=== PATIENT | female | born 1990 | race Caucasian/White ===

== ENCOUNTER 2023-06-17 12:07 | Emergency (ER) | payer SELFPAY ==
[2023-06-17 12:16] VITALS: RESP 18; BMI 30.2
[2023-06-17] MEDS ORDERED: ACETAMINOPHEN 325 MG TABLET (FP) PO ONE (13:24)
[2023-06-17 13:40] LABS: BASO % 0.4 % (0-2.0); EOS % 0.6 % (0-4.5); HEMATOCRIT 39.5 % (32.4-45.2); HEMOGLOBIN 13.2 GM/dL (10.7-15.3); LYMPH % 18.5 % (8-40); MCH 30.3 pg (25.7-33.7); MCHC 33.5 g/dl (32.0-36.0); MEAN CELL VOLUME 90.4 fl (80-96); MEAN PLT VOLUME 8.3 fl (7.5-11.1); MONO % 3.4 % (3.8-10.2); NEUT % 77.1 % (42.8-82.8); PLATELET COUNT 385 10^3/uL (134-434); RBC 4.37 M/mm3 (3.60-5.2); RDW 12.4 % (11.6-15.6); WHITE BLOOD COUNT 11.7 K/mm3 (4.0-10.0)
[2023-06-17 13:42] LABS: EPI CELLS >36 /uL (0-25.1); HYALINE CASTS 1 /uL (0-3.1); URINE APPEARANCE CLEAR; URINE BACTERIA 100 /uL (0-1359); URINE BILIRUBIN NEGATIVE (NEGATIVE); URINE COLOR YELLOW; URINE GLUCOSE (UA) NEGATIVE (NEGATIVE); URINE KETONE NEGATIVE (NEGATIVE); URINE LEUK ESTERASE 1+ (NEGATIVE); URINE NITRITE NEGATIVE (NEGATIVE); URINE PROTEIN NEGATIVE (NEGATIVE); URINE RBC 5 /uL (0-23.9); URINE UROBILINOGEN 0.2 mg/dL (0.2-1.0); URINE WBC 18 /uL (0-25.8)
[2023-06-17] MEDS ORDERED: ACETAMINOPHEN 325 MG TABLET (FP) ONE (13:52)
[2023-06-17 14:15] LABS: CALCIUM 9.1 mg/dL (8.5-10.1)
[2023-06-17 14:16] LABS: ALBUMIN 3.4 g/dl (3.4-5.0); BLOOD UREA NITROGEN 4.7 mg/dL (7-18)
[2023-06-17 14:19] LABS: CREATININE 0.5 mg/dL (0.55-1.3)
[2023-06-17 14:21] LABS: TOT PROT 7.6 g/dl (6.4-8.2)
[2023-06-17 14:27] LABS: BILIRUBIN,TOTAL 0.4 mg/dL (0.2-1)
[2023-06-17 16:18] VITALS: BP 118/80; PULSE 86; TEMP 98
== END 2023-06-17 16:18 | disposition home or self-care (01) ==
LOC: JER 12:07
DX: R10.2 Pelvic and perineal pain (principal)
CPT/HCPCS: 36415; 76815-TC; 80053; 81003; 85025; 86850; 86900; 86901; 87086; 99284-25

== ENCOUNTER 2025-02-13 04:15 | Inpatient (IN) | payer OTHER ==
[2025-02-13 05:37] VITALS: BMI 36.1
[2025-02-13] MEDS: ELECTROLYTE-148 SOLN 1,000 ML IV SCH (06:00)
[2025-02-13] MEDS ORDERED: AMPICILLIN SODIUM 2 GM VIAL ONE (06:08)
[2025-02-13] MEDS: AMPICILLIN - 2 GM in SODIUM CHLORIDE 100 ML IVPB ONE (06:10)
[2025-02-13 06:45] LABS: ABSOLUTE IMMATURE GRANULOCYTES 0.12 x10^3/uL (0.0-0.031); BASOPHILS # 0.06 x10^3/uL (0.01-0.08); EOSINOPHIL % 1.1 % (0.7-5.8); EOSINOPHILS # 0.15 x10^3/uL (0.04-0.36); MCHC 31.4 g/dl (32.2-35.5); MEAN CELL VOLUME 83.3 fl (79.4-94.8); MEAN PLT VOLUME 11.2 fl (9.4-12.3); MONOCYTE # 0.63 x10^3/uL (0.24-0.86); MONOCYTE % 4.6 % (4.7-12.5); RDW 18.9 % (12.1-16.8)
[2025-02-13 06:53] LABS: INR 0.95 (0.83-1.09); PROTHROMBIN TIME (PATIENT) 10.4 SEC (9.7-13.0)
[2025-02-13 06:55] LABS: ACTIVATED PTT 27.3 SECONDS (25.2-36.5)
[2025-02-13 07:05] LABS: GLUCOSE,RANDOM 99.0 mg/dL (74-106)
[2025-02-13 07:06] LABS: CO2 17.0 mmol/L (21-32)
[2025-02-13] MEDS ORDERED: NALOXONE HCL 0.4 MG/ML VIAL IVPUSH PRN (07:09)
[2025-02-13 07:10] LABS: CREATININE 0.47 mg/dL (0.55-1.3)
[2025-02-13] MEDS ORDERED: FENTANYL/BUPIVACAINE/NS/PF - PCEA - 50 ML DISP.SYRIN EP ONE ×2 (07:18→11:34)
[2025-02-13] MEDS: FENTANYL/BUPIVACAINE/NS/PF - PCEA - 50 ML DISP.SYRIN EP SCH (07:40)
[2025-02-13] MEDS ORDERED: AMPICILLIN SODIUM 1 GM VIAL ONE ×2 (09:40→13:54)
[2025-02-13] MEDS: AMPICILLIN - 1 GM in SODIUM CHLORIDE 100 ML IVPB SCH (09:45)
[2025-02-13] MEDS ORDERED: OXYTOCIN 20 UNITS in 0.9% NS 20 UNIT/1,000 ML INFUS.BAG IV ONE (11:51)
[2025-02-13] MEDS: OXYTOCIN 30 UNITS in 0.9% NS 30 UNIT/500 ML INFUS.BAG IVPB SCH (14:50)
[2025-02-13] MEDS: OXYTOCIN 20 UNITS in 0.9% NS 20 UNIT/1,000 ML INFUS.BAG IV SCH (16:30)
[2025-02-13 16:42] LABS: CORD BASE EXCESS -7.000 mmol/L (0-2); CORD HCO3 22.5 mmHg (20-29); CORD PCO2 60.5 mmHg (30-78); CORD pH 7.188 (7.14-7.44)
[2025-02-13 16:45] LABS: CORD BASE EXCESS -4.8 mmol/L (0-2); CORD HCO3 22.2 mmHg (20-29); CORD PCO2 47.4 mmHg (30-78); CORD pH 7.288 (7.14-7.44)
[2025-02-13] MEDS ORDERED: BENZOCAINE 28 GM HEMORRHOIDAL OINTMENT TP PRN (17:12)
[2025-02-13] MEDS ORDERED: BISACODYL 10 MG SUPP.RECT RC PRN (17:12)
[2025-02-13] MEDS ORDERED: METHYLERGONOVINE MALEATE 0.2 MG/1 ML AMP IM PRN (17:12)
[2025-02-13] MEDS: BENZOCAINE 20% 57 GM BOTTLE TP PRN (18:51)
[2025-02-13] MEDS: WITCH HAZEL 50% (TUCKS) 40 PAD/JAR PAD TP PRN (18:52)
[2025-02-13] MEDS: ACETAMINOPHEN 325 MG TABLET (FP) PO PRN (19:11)
[2025-02-13] MEDS: OXYTOCIN 15 UNITS/ LR 250 ML 15 UNIT/250 ML INFUS.BAG IVPB SCH (20:35)
[2025-02-14 07:46] LABS: ABSOLUTE IMMATURE GRANULOCYTES 0.13 x10^3/uL (0.0-0.031); BASOPHILS # 0.05 x10^3/uL (0.01-0.08); EOSINOPHIL % 1.1 % (0.7-5.8); EOSINOPHILS # 0.17 x10^3/uL (0.04-0.36); MCHC 31.6 g/dl (32.2-35.5); MEAN CELL VOLUME 83.5 fl (79.4-94.8); MEAN PLT VOLUME 11.0 fl (9.4-12.3); MONOCYTE # 0.79 x10^3/uL (0.24-0.86); MONOCYTE % 5.3 % (4.7-12.5); RDW 19.3 % (12.1-16.8)
[2025-02-14 09:38] VITALS: RESP 18
[2025-02-14] MEDS: IBUPROFEN 600 MG TABLET (FP) PO PRN (11:06)
[2025-02-14] MEDS ORDERED: SENNOSIDES/DOCUSATE COMBO (SENNA PLUS) TABLET (UD) PO PRN (22:00)
[2025-02-15 10:11] VITALS: BP 119/73; PULSE 74; TEMP 98
== END 2025-02-15 14:30 | disposition home or self-care (01) | DRG 560 ==
LOC: JDEL 04:15 → JLDR 05:00 → J3W 18:19
PROVIDERS: ADMIT Obstetrics & Gynecology; ATTEND Obstetrics & Gynecology
PROC: 10E0XZZ Delivery of Products of Conception, External Approach (ICD-10-PCS; principal; 2025-02-13)
PROC: 0UQMXZZ Repair Vulva, External Approach (ICD-10-PCS; 2025-02-13)
PROC: 0W8NXZZ Division of Female Perineum, External Approach (ICD-10-PCS; 2025-02-13)
DX: O24.424 Gestational diabetes mellitus in childbirth, insulin controlled (principal); O99.824 Streptococcus B carrier state complicating childbirth; O71.82 Other specified trauma to perineum and vulva; Z3A.39 39 weeks gestation of pregnancy; Z37.0 Single live birth
CPT/HCPCS: 36415; 36600; 59409; 80048; 82803; 82962; 85025; 85610; 85730; 86780; 86850; 86900; 86901